=== PATIENT | male | born 1955 | race Caucasian/White ===

== ENCOUNTER 2018-05-24 13:33 | Day surgery (SDC) | payer OTHER ==
[~2018-05-24 13:33] MED LIST: Dexamethasone 20 MG/5 ML VIAL ONE; Ketorolac Tromethamine 30 MG/ML VIAL ONE; Lidocaine 1% PF 5 ML VIAL ONE; Ondansetron HCl/PF 4 MG/2 ML Vial ONE; PROPOFOL 200 MG/20 ML VIAL ONE
[2018-05-24 14:28] LABS: #Basophils 0.1 thou/uL (0.0-0.2); #Eosinphils 0.2 thou/uL (0.0-0.7); #Lymphocytes 2.5 thou/uL (1.20-3.40); #Monocytes 0.7 thou/uL (0.11-0.59); #Neutrophils 5.7 thou/uL (1.40-6.50); %Basophils 0.7 % (0.0-1.0); %Eosinophils 2.6 % (0.0-10.0); %Lymphocytes 27.3 % (21.0-51.0); %Monocytes 7.1 % (0.0-10.0); %Neutrophils 62.3 % (42.0-75.0); Hemoglobin 14.6 g/dL (14.0-18.0); Mean Corpuscular HGB CONC 33.4 g/dL (32.0-36.0); Mean Corpuscular Hemoglobin 30.8 pg (27.0-31.0); Mean Corpuscular Volume 92.3 fL (78.0-98.0); Mean Platelet Volume 7.6 fL (7.4-10.4); Platelet Count 244 thou/uL (130-400); RBC Distribution Width 13.6 % (11.5-14.5); Red Blood Cell (RBC) Count 4.75 mill/uL (4.70-6.10); White Blood Cell (WBC) Count 9.2 thou/uL (4.8-10.8)
[2018-05-24 14:44] LABS: Anion Gap 16 mmol/L (10-20); BUN (Urea Nitrogen) 19 mg/dL (8.4-25.7); Calc. Creatinine Clearance 0 mL/min (70-130); Calcium 10.2 mg/dL (7.8-10.44); Carbon Dioxide 23 mmol/L (23-31); Chloride 103 mmol/L (98-107); Estimated GFR-MDRD 59; Glucose 87 mg/dL (80-115); Potassium 4.1 mmol/L (3.5-5.1); Sodium 138 mmol/L (136-145); Uric Acid 9.6 mg/dL (3.5-7.2)
[2018-05-24] MEDS ORDERED: Clindamycin/D5W 600 mg/50 ml Premix Bag ONE (15:09)
[2018-05-24] MEDS ORDERED: Midazolam HCl 2 mg/2 ml Vial ONE (16:15)
[2018-05-24] MEDS ORDERED: Fentanyl 100 MCG/2 ML VIAL ONE (16:15)
--- NOTE | 2018-05-25 10:05 | OP ---
DATE OF PROCEDURE: 05/24/2018 SURGEON: Arpit Garcia M.D. ANESTHESIA: General LMA technique by Haitian Anesthesia augmented by 10 mL of 0.5% Marcaine block a t the metacarpophalangeal joint level of the left thumb. PROCEDURE PERFORMED: 1. Left thumb interphalangeal joint arthrotomy. 2. Drainage of gouty tophi, intra-articular. 3. Left thumb interphalangeal synovectomy, open. TOURNIQUET TIME: 20 minutes. ESTIMATED BLOOD LOSS: 10 mL FINDINGS: Grossly gouty tophi, sent to the lab for both culture and polarized light study to identif y the crystals. INDICATION: The patient with swelling and joint pain, ports of intermittent drainage of "white milky substance." DESCRIPTION OF PROCEDURE: After successful general LMA technique, the limb was prepped and draped. The patient had a timeout done appropriately. We then injected the thumb at the base of the metacarp ophalangeal joint with 10 mL of 0.5% Marcaine with epinephrine for block. We waited 4 minutes, infla brayan tourniquet and then made a partial hockey stick incision over the joint, carried through skin and immediately white pasty mucoid type hyperuricemic deposit escaped from underneath the extensor tendo n. We then made a window between the extensor tendon and the collaterals on both sides extenso r tendon and then irrigated the joint. We evacuated the paste and tophaceous gout from the joint usi ng a combination of Acadia blade, [place] and then used syringes with 50 mL normal saline with antibiot ics inside and Angiocath of 18 gauge to irrigate the joint properly. After we had run 1 liter of flu id through the joint in this method, we released the tourniquet. We had excellent hemostasis. We th en closed the skin only after deflating the tourniquet and obtained hemostasis using a 4-0 nylon inte rrupted in a simple pattern. The patient had bulky dressings and a splint applied and left the opera ting room without evidence of anesthetic or operative complication.
== END 2018-05-24 19:50 | disposition home or self-care (01) ==
LOC: SDC 13:33
PROVIDERS: ATTEND Orthopaedic Surgery Hand Surgery
PROC: 0RCX0ZZ Extirpation of Matter from Left Finger Phalangeal Joint, Open Approach (ICD-10-PCS; principal; 2018-05-24)
DX: M1A.0421 Idiopathic chronic gout, left hand, with tophus (tophi) (principal); I10 Essential (primary) hypertension; E78.00 Pure hypercholesterolemia, unspecified; Z79.899 Other long term (current) drug therapy
CPT/HCPCS: 36415; 80048; 84550; 85025; 85652; 87070; 87205; 88305; 96372; 96374; J1100; J1885; J2001; J2250; J2405; J2704; J3010; J3490

== ENCOUNTER 2018-06-11 14:07 | Emergency (ER) | payer OTHER ==
--- NOTE | 2018-06-11 14:43 | RAD ---
LEFT THUMB 3 VIEWS: HISTORY: Left thumb swelling status post surgery, postop infection. FINDINGS: There are degenerative changes. No fracture, dislocation, bony destruction, or periosteal reaction i s seen. POS: H
[2018-06-11 15:08] LABS: #Basophils 0.1 thou/uL (0.0-0.2); #Eosinphils 0.2 thou/uL (0.0-0.7); #Lymphocytes 2.4 thou/uL (1.20-3.40); #Monocytes 0.6 thou/uL (0.11-0.59); #Neutrophils 6.2 thou/uL (1.40-6.50); %Basophils 0.8 % (0.0-1.0); %Eosinophils 2.5 % (0.0-10.0); %Lymphocytes 25.4 % (21.0-51.0); %Monocytes 6.4 % (0.0-10.0); %Neutrophils 64.9 % (42.0-75.0); Hemoglobin 15.1 g/dL (14.0-18.0); Mean Corpuscular HGB CONC 34.6 g/dL (32.0-36.0); Mean Corpuscular Hemoglobin 31.6 pg (27.0-31.0); Mean Corpuscular Volume 91.5 fL (78.0-98.0); Mean Platelet Volume 7.5 fL (7.4-10.4); Platelet Count 230 thou/uL (130-400); RBC Distribution Width 13.4 % (11.5-14.5); Red Blood Cell (RBC) Count 4.78 mill/uL (4.70-6.10); White Blood Cell (WBC) Count 9.5 thou/uL (4.8-10.8)
[2018-06-11 15:29] LABS: ALT (SGPT) 20 U/L (8-55); AST (SGOT) 20 U/L (5-34); Albumin 4.2 g/dL (3.4-4.8); Alkaline Phosphatase 69 U/L (40-150); Anion Gap 17 mmol/L (10-20); BUN (Urea Nitrogen) 25 mg/dL (8.4-25.7); Bilirubin, Total 0.6 mg/dL (0.2-1.2); Calc. Creatinine Clearance 0 mL/min (70-130); Calcium 9.7 mg/dL (7.8-10.44); Carbon Dioxide 23 mmol/L (23-31); Chloride 101 mmol/L (98-107); Estimated GFR-MDRD 55; Globulin 3.9 g/dL (2.4-3.5); Glucose 91 mg/dL (80-115); Potassium 3.8 mmol/L (3.5-5.1); Protein, Total 8.1 g/dL (5.8-8.1); Sodium 137 mmol/L (136-145)
[2018-06-11] MEDS ORDERED: Morphine 4 MG/ML VIAL ONE (16:09)
[2018-06-11] MEDS ORDERED: HYDROcodone/Acetaminophen 7.5/325 mg Tablet ONE (19:27)
== END 2018-06-11 19:54 | disposition home or self-care (01) ==
LOC: ERS 14:07
DX: L02.512 Cutaneous abscess of left hand (principal); M10.9 Gout, unspecified; I10 Essential (primary) hypertension; Z79.899 Other long term (current) drug therapy
CPT/HCPCS: 10060; 36416; 80053; 83605; 84550; 85025; 85652; 86140; 87040; 96361; 96365; 96375; J2270; J3370

== ENCOUNTER 2018-06-16 16:20 | Observation (INO) | payer OTHER ==
[~2018-06-16 16:20] MED LIST changes: -Dexamethasone 20 MG/5 ML VIAL ONE; -Ketorolac Tromethamine 30 MG/ML VIAL ONE; -Ondansetron HCl/PF 4 MG/2 ML Vial ONE
[2018-06-16 17:09] LABS: #Basophils 0.1 thou/uL (0.0-0.2); #Eosinphils 0.3 thou/uL (0.0-0.7); #Monocytes 0.7 thou/uL (0.11-0.59); #Neutrophils 6.5 thou/uL (1.40-6.50); %Basophils 0.9 % (0.0-1.0); %Eosinophils 2.4 % (0.0-10.0); %Lymphocytes 28.3 % (21.0-51.0); %Neutrophils 61.4 % (42.0-75.0); Hemoglobin 15.3 g/dL (14.0-18.0); Mean Corpuscular HGB CONC 34.9 g/dL (32.0-36.0); Mean Corpuscular Hemoglobin 31.5 pg (27.0-31.0); Mean Corpuscular Volume 90.4 fL (78.0-98.0); Mean Platelet Volume 7.5 fL (7.4-10.4); Platelet Count 257 thou/uL (130-400); RBC Distribution Width 13.6 % (11.5-14.5); Red Blood Cell (RBC) Count 4.86 mill/uL (4.70-6.10); White Blood Cell (WBC) Count 10.5 thou/uL (4.8-10.8)
[2018-06-16] MEDS ORDERED: Fentanyl 100 MCG/2 ML VIAL ONE ×2 (18:00→20:10)
[2018-06-16] MEDS ORDERED: Thrombin 5000 UNITS/5 ML VIAL ONE (19:00)
[2018-06-16] MEDS ORDERED: Lidocaine 1% (PF) 30 ML VIAL ONE (19:00)
[2018-06-16] MEDS ORDERED: Bacitracin Zinc Ointment 30 gm TUBE ONE (19:00)
[2018-06-16] MEDS ORDERED: Bupivacaine PF 0.5% 30 ML VIAL ONE (19:00)
[2018-06-16] MEDS ORDERED: Sodium Chloride 0.9% 30 ML ONE (19:00)
[2018-06-16] MEDS ORDERED: Ondansetron HCl/PF 4 MG/2 ML Vial IVP PRN (21:14)
[2018-06-16] MEDS ORDERED: Promethazine HCl 25 MG/ML VIAL IM PRN (21:14)
[2018-06-16] MEDS ORDERED: Promethazine HCl 25 MG/ML VIAL SLOW IVP PRN (21:14)
[2018-06-16] MEDS ORDERED: Ketorolac Tromethamine 30 MG/ML VIAL ONE (21:18)
[2018-06-16] MEDS ORDERED: Milk Of Magnesia 30 ML UDCUP PO PRN (21:22)
[2018-06-16] MEDS ORDERED: Fentanyl 100 MCG/2 ML VIAL SLOW IVP PRN (21:22)
[2018-06-16] MEDS ORDERED: Morphine 4 MG/ML VIAL SLOW IVP PRN (21:22)
[2018-06-16] MEDS ORDERED: Acetaminophen 325 MG TAB PO PRN (21:22)
[2018-06-16] MEDS ORDERED: Ondansetron HCl/PF 4 MG/2 ML Vial IV PRN (21:22)
[2018-06-16] MEDS ORDERED: HYDROcodone/Acetaminophen 5/325 mg Tablet PO PRN (21:22)
[2018-06-16] MEDS ORDERED: traMADol HCl 50 MG TAB PO PRN (21:22)
[2018-06-16] MEDS ORDERED: Meperidine HCl/PF 25 MG/ML VIAL IM PRN (21:26)
[2018-06-16] MEDS ORDERED: Communication Order-Pharmacy FS PRN (21:30)
[2018-06-16] MEDS ORDERED: TETANUS AND DIPHTHERIA TOX/PF 0.5 ML DISP.SYRIN IM SCH (21:30)
[2018-06-16 21:57] LABS: #Basophils 0.1 thou/uL (0.0-0.2); #Eosinphils 0.3 thou/uL (0.0-0.7); #Lymphocytes 2.5 thou/uL (1.20-3.40); #Monocytes 0.6 thou/uL (0.11-0.59); #Neutrophils 4.5 thou/uL (1.40-6.50); %Basophils 1.3 % (0.0-1.0); %Eosinophils 3.2 % (0.0-10.0); %Lymphocytes 31.5 % (21.0-51.0); %Monocytes 7.4 % (0.0-10.0); %Neutrophils 56.6 % (42.0-75.0); Hemoglobin 14.2 g/dL (14.0-18.0); Mean Corpuscular HGB CONC 34.8 g/dL (32.0-36.0); Mean Corpuscular Hemoglobin 31.7 pg (27.0-31.0); Mean Corpuscular Volume 91.1 fL (78.0-98.0); Mean Platelet Volume 7.2 fL (7.4-10.4); Platelet Count 221 thou/uL (130-400); RBC Distribution Width 13.5 % (11.5-14.5); Red Blood Cell (RBC) Count 4.47 mill/uL (4.70-6.10); White Blood Cell (WBC) Count 7.9 thou/uL (4.8-10.8)
[2018-06-16] MEDS ORDERED: Ketorolac Tromethamine 30 MG/ML VIAL IM/IV SCH (22:15)
[2018-06-17 05:14] VITALS: BMI 42.0
[2018-06-17] MEDS ORDERED: Aspirin 81 mg Enteric Coated Tablet PO SCH (09:00)
--- NOTE | 2018-06-17 14:40 | OP ---
PREOPERATIVE DIAGNOSIS: Left thumb gout with possible superinfection findings. POSTOPERATIVE DIAGNOSIS: Left thumb gout, still with some tophi, possible purulence superinfection s econdary to gout and now 3 weeks since initial debridement. INDICATION: The patient returns to the clinic after cellulitis, removal of some sutures, allow drain age and still had drainage, but erythema had increased to an area of 5 mm on all sides of the dorsal thumb interphalangeal joint incision. For this reason, operative intervention was indicated because abscess, possible gouty destruction, and the need to restore soft tissue balance. DESCRIPTION OF PROCEDURE: After successful general LMA technique, the limb was prepped and draped. The patient had the previous wound opened, extended 1 cm proximal to distal, making a lazy, hockey st ick type incision and on the dorsal ulnar aspect mucopurulent plus or minus gouty tophi escaped. We then followed this down and performed arthrotomy. Three of the arthrotomy interspaces, both medial _ ____ radial and ulnar between the collaterals and the primary extensor tendon. We placed a 16-gauge Angiocath and irrigated this with a 250 mL normal saline from both sites. There was no peritendinous reactive tissue to debride. Once this was done, with volar and radial, carried this into semi Nick type incision to reach the f lexor tendons to retract the neurovascular bundles away from the for the interphalangeal joint. From here, there was some mucoid-type tissue, which looked like gouty tophi escape and soft t issue. Once debrided enough for this, make a sample to make a difference, we then irrigated this are a with 50 mL normal saline solution. The tourniquet was now deflated, we did perform synovectomy at the left dorsal thumb around the edges of the extensor tendon, then we did on the flexors, we obtaine d hemostasis, closed the wound with interrupted 4-0 nylon, both dorsal and palmar.
[2018-06-17 20:09] VITALS: BP 138/71; TEMP 98.2
== END 2018-06-17 19:34 | disposition home or self-care (01) ==
LOC: SDC 16:20 → SURG A 21:53
PROVIDERS: ADMIT Orthopaedic Surgery Hand Surgery; ATTEND Orthopaedic Surgery Hand Surgery
PROC: 0RBX0ZZ Excision of Left Finger Phalangeal Joint, Open Approach (ICD-10-PCS; principal; 2018-06-16)
DX: M10.9 Gout, unspecified (principal); M00.9 Pyogenic arthritis, unspecified; I10 Essential (primary) hypertension; Z79.899 Other long term (current) drug therapy
CPT/HCPCS: 36415; 84550; 85025; 85652; 87070; 87077; 87186; 87205; 88304; 89060; 96365; 96374; 96375; 96376; A4216; G0378; J1885; J2001; J2270; J2704; J3010; J3370; J3490; J7050; S0020

== ENCOUNTER 2018-06-25 11:54 | Day surgery (SDC) | payer OTHER ==
[2018-06-24 16:30] VITALS: BMI 40.8
[2018-06-25] MEDS ORDERED: Clindamycin/D5W 600 mg/50 ml Premix Bag ONE (13:49)
[2018-06-25] MEDS ORDERED: Fentanyl 100 MCG/2 ML VIAL ONE ×2 (14:10→21:35)
[2018-06-25] MEDS ORDERED: PROPOFOL 200 MG/20 ML VIAL ONE (14:14)
[2018-06-25 14:15] LABS: #Eosinphils 0.2 thou/uL (0.0-0.7); #Lymphocytes 2.8 thou/uL (1.20-3.40); #Monocytes 0.6 thou/uL (0.11-0.59); #Neutrophils 7.6 thou/uL (1.40-6.50); %Basophils 0.4 % (0.0-1.0); %Eosinophils 1.8 % (0.0-10.0); %Lymphocytes 24.5 % (21.0-51.0); %Monocytes 5.6 % (0.0-10.0); %Neutrophils 67.8 % (42.0-75.0); Hemoglobin 14.5 g/dL (14.0-18.0); Mean Corpuscular Hemoglobin 31.8 pg (27.0-31.0); Mean Corpuscular Volume 93.6 fL (78.0-98.0); Mean Platelet Volume 7.7 fL (7.4-10.4); Platelet Count 258 thou/uL (130-400); RBC Distribution Width 13.4 % (11.5-14.5); Red Blood Cell (RBC) Count 4.57 mill/uL (4.70-6.10); White Blood Cell (WBC) Count 11.2 thou/uL (4.8-10.8)
--- NOTE | 2018-06-25 16:21 | EKG ---
Test Reason : PREOP Blood Pressure : / mmHG Vent. Rate : 095 BPM Atrial Rate : 095 BPM P-R Int : 174 ms QRS Dur : 082 ms QT Int : 354 ms P-R-T Axes : 045 014 008 degrees QTc Int : 444 ms Normal sinus rhythm with sinus arrhythmia Normal ECG No previous ECGs available Confirmed by DR. Wil MIKE ([id number]) on 06/25/2018 4:21:01 PM Referred By: AYANA Confirmed By:DR. Wil MIKE
[2018-06-25] MEDS ORDERED: Sodium Chloride 0.9% 100 ML ONE (16:37)
[2018-06-25] MEDS ORDERED: Bupivacaine PF 0.5% 30 ML VIAL ONE (20:05)
[2018-06-25] MEDS ORDERED: Sodium Chloride 0.9% 20 ML ONE (20:05)
[2018-06-25] MEDS ORDERED: Bacitracin Zinc Ointment 30 gm TUBE ONE (20:05)
[2018-06-25] MEDS ORDERED: HYDROmorphone 2 MG/ML VIAL ONE (21:21)
[2018-06-25] MEDS ORDERED: Midazolam HCl 2 mg/2 ml Vial ONE (21:35)
[2018-06-25] MEDS ORDERED: Propofol 500 MG/50 ML VIAL ONE (21:35)
[2018-06-25] MEDS ORDERED: Sodium Chloride 0.9% 10 ML ONE (22:04)
[2018-06-25] MEDS ORDERED: Ketorolac Tromethamine 30 MG/ML VIAL ONE (22:54)
--- NOTE | 2018-06-26 07:49 | OP ---
PREOPERATIVE DIAGNOSIS: Wound open 7 cm, left thumb. FINDINGS: Wound open 7 cm in left thumb, 5 cm opened in the dorsum of the thumb and 2 on the palmar aspect. PROCEDURES PERFORMED: 1. Debridement of wound. A. Excision technique. B. Used tenotomies, Ridge[place] blade, 11-blade, and curette down to not including the fascia throu gh the dermis, epidermis, and fat; and then finally there was no complication or gross infection patrick bailey 2. A 7-cm wound closure, total, left thumb. TOURNIQUET TIME: None. ESTIMATED BLOOD LOSS: Less than 5 mL. INDICATIONS: The patient after having very severe combination of infection as well as gout. N ow, on appropriate gout medications and wound showed no gross infection in the clinic 2 days ago, so the surgery was schedule now, at least 3 weeks since the initial procedure. DESCRIPTION OF PROCEDURE: After successful propofol deep IV sedation in the operating room, the amanda ent had 10 mL metacarpophalangeal joint level block for the thumb. We waited 7 or 8 minutes, then we began to debride. We used instrumentation as listed above and the technique to debride the wound ed ges, elevate the edges proximally, and debride them as needed. There was no actual resistance to thi s procedure and after we had debrided the wound edges, we then alternated one side of wound to the ot her using simple sutures to close the wound. The patient then left the operating room without eviden ce of anesthetic or operative complication.
--- NOTE | 2018-07-07 08:29 | PQF ---
[facility] POST DISCHARGE CLINICAL DOCUMENTATION IMPROVEMENT CLARIFICATION FORM l Todays Date: 06/30/18 l Patients Name TORY GRIFFITHS l l Admit Date 06/25/18 l Disch Date 06/25/18 [place] Name Tay Melton Email: [email or web address] Cell: [phone] Present Clinical Indicators - Signs / Symptoms Results and Location in Medical Record [ ] Documentation of: [ ] [ ] Documentation of: [ ] [ ] Documentation of: [ ] [ ] Documentation of: [ ] [ ] Risks [ ] [ ] [ ] Treatment [ ] Open wound of left thumb Please specify the size of area debrided in Operative Report [ ] [ ] To be completed by Physician: JOSE EDUARDO COREAS The documentation in this patients record requires clarification to ensure coding compliance and accuracy. Check the appropriate box and include in your discharge summary. [ ] _the wound was 3 X1cm [ ] [ ] [ ] Please check this box if this does not apply to this patient [ ] Unable to determine [ ] Other diagnosis: Review the following information and exercise your independent professional judgment in responding to the clarification. Based upon the clinical findings, risk factors, and treatment, please clarify if you are treating one of the above probable or suspected diagnoses. MTDD
== END 2018-06-25 23:35 | disposition home or self-care (01) ==
LOC: SDC 11:54
PROVIDERS: ATTEND Orthopaedic Surgery Hand Surgery
PROC: 0JBK0ZZ Excision of Left Hand Subcutaneous Tissue and Fascia, Open Approach (ICD-10-PCS; principal; 2018-06-25)
DX: S61.002A Unspecified open wound of left thumb without damage to nail, initial encounter (principal); I10 Essential (primary) hypertension; E78.00 Pure hypercholesterolemia, unspecified; M19.042 Primary osteoarthritis, left hand; M1A.0420 Idiopathic chronic gout, left hand, without tophus (tophi); Z79.82 Long term (current) use of aspirin; Z79.899 Other long term (current) drug therapy
CPT/HCPCS: 84550; 85025; 85652; 93005; 93010; 96374; A4216; J1170; J1885; J2250; J2704; J3010; J3490; J7050; S0020

== ENCOUNTER 2018-06-27 14:38 | Emergency (ER) | payer OTHER ==
[2018-06-27] MEDS ORDERED: Bacitracin Zinc 1 Packet ONE (15:43)
== END 2018-06-27 16:05 | disposition home or self-care (01) ==
LOC: ERS 14:38
DX: Z47.89 Encounter for other orthopedic aftercare (principal); M10.9 Gout, unspecified; Z79.899 Other long term (current) drug therapy; Z79.82 Long term (current) use of aspirin
CPT/HCPCS: 99282

== ENCOUNTER 2018-07-30 11:59 | Day surgery (SDC) | payer OTHER ==
[2018-07-29 14:19] VITALS: BMI 41.6
[2018-07-30] MEDS ORDERED: Midazolam HCl 2 mg/2 ml Vial ONE (12:48)
[2018-07-30] MEDS ORDERED: PROPOFOL 20 ML ONE (12:48)
[2018-07-30] MEDS ORDERED: PROPOFOL 200 MG/20 ML VIAL ONE (13:25)
[2018-07-30] MEDS ORDERED: Gadobenate Dimeglumine 529 MG/1 ML (20ML VIAL) ONE (15:10)
--- NOTE | 2018-07-30 16:06 | MRI ---
RIGHT SHOULDER MRI WITH AND WITHOUT IV CONTRAST 07/30/18 HISTORY: 62-year-old male with history of chondroid bone lesion. Complete tear right rotator cuff. Comparison is made to prior plain film examination of the right shoulder 01/23/08. The exam was performed with bone mass protocol. There is abnormal marrow signal including some calcif ic or ossific foci within the humeral neck and extending in to the proximal humeral metaphysis, evide nce for a low grade chondroid matrix tumor such as an enchondroma. This sclerotic bone lesion was pre sent and does not appear to be significantly changed when comparing MR to plain film examination dati ng back to 01/23/08. There is a markedly abnormal widened AC joint with fluid extending directly from the glenohumeral joint into the AC joint, evidence for disruption of the joint capsule. If the patien t has not had prior surgery to account for this, this may be related to chronic longstanding abutment of the humerus at the undersurface of the lateral acromion and AC joint from very severe longstandi ng rotator cuff injuries. There is very markedly severe muscle volume loss of the supraspinatus muscl e, infraspinatus muscle, teres minor muscle, subscapularis muscle and moderate to severe muscle volum e loss of the overlying deltoid muscle. There appear to be longstanding irregular full thickness retr acted tears of the supraspinatus tendon and infraspinatus tendon with some associated delamination. T he teres minor tendon appears intact. Very poor definition of the subscapularis tendon consistent wit h at least partial thickness undersurface and delaminating tears. No normal intact biceps tendon is seen intra-articularly. Arthrosis changes with glenohumeral joint arthropathy changes involving the humeral head which essentially abuts the undersurface of the lateral acromion. The visualized labrum is very poorly defined and blunted, evidence for severe degeneration. IMPRESSION: Very extensive longstanding chronic rotator cuff tears with severe muscle volume loss involving all o f the rotator cuff muscles. Prominent glenohumeral joint arthropathy. Abnormally widened AC joint wit h disruption of the underlying joint capsule, possibly from longstanding abutment of the humeral head unless the patient has had prior surgery to this region. Heterogeneous abnormal signal within the hu meral head and neck with some calcific or ossific foci evidence for nonaggressive chondroid matrix tu mor such as an enchondroma without significant adjacent abnormal marrow edema and prior plain film ex amination from 01/23/08 study demonstrated that this chondroid matrix tumor was present at that time. O ther findings as above. POS: TPC
== END 2018-07-30 15:35 | disposition home or self-care (01) ==
LOC: SDC/OP 11:59
PROVIDERS: ATTEND Orthopaedic Surgery Hand Surgery
DX: M75.121 Complete rotator cuff tear or rupture of right shoulder, not specified as traumatic (principal); M12.811 Other specific arthropathies, not elsewhere classified, right shoulder; C49.9 Malignant neoplasm of connective and soft tissue, unspecified; M94.9 Disorder of cartilage, unspecified; I10 Essential (primary) hypertension; E78.00 Pure hypercholesterolemia, unspecified; M10.9 Gout, unspecified; S61.002A Unspecified open wound of left thumb without damage to nail, initial encounter; B95.8 Unspecified staphylococcus as the cause of diseases classified elsewhere; Z79.1 Long term (current) use of non-steroidal anti-inflammatories (NSAID); Z79.2 Long term (current) use of antibiotics; Z79.51 Long term (current) use of inhaled steroids; Z79.82 Long term (current) use of aspirin; Z79.899 Other long term (current) drug therapy
CPT/HCPCS: 82565; A9579; J2250; J2704

== ENCOUNTER 2018-10-05 13:00 | Inpatient (IN) | payer OTHER ==
[2018-10-06 13:52] VITALS: BMI 42.8
[2018-10-07] MEDS ORDERED: Midazolam HCl 2 mg/2 ml Vial ONE (06:10)
[2018-10-07] MEDS ORDERED: Fentanyl 100 MCG/2 ML VIAL ONE (06:10)
[2018-10-07] MEDS ORDERED: Sodium Chloride 0.9% 100 ML ONE (06:19)
[2018-10-07] MEDS ORDERED: CEFAZOLIN 2 GM/50 ML BAG ONE (06:19)
[2018-10-07] MEDS ORDERED: Tranexamic Acid 1,000 MG/10 ML VIAL ONE ×2 (06:19→10:16)
[2018-10-07] MEDS ORDERED: traMADol HCl 50 MG TAB PO PRN ×3 (06:38→11:28)
[2018-10-07] MEDS ORDERED: Fentanyl 100 MCG/2 ML VIAL SLOW IVP PRN (06:38)
[2018-10-07] MEDS ORDERED: HYDROcodone/Acetaminophen 10/325 mg Tablet PO PRN ×2 (06:38)
[2018-10-07] MEDS ORDERED: Ropivacaine 0.2% 550 ML 550 ML NERVE BLCK SCH (06:38)
[2018-10-07] MEDS ORDERED: Zolpidem Tartrate 5 MG TAB PO PRN (06:38)
[2018-10-07] MEDS ORDERED: Promethazine HCl 25 MG/ML VIAL IM PRN ×2 (06:38→07:57)
[2018-10-07] MEDS ORDERED: Ondansetron PF 4 MG/2 ML Vial IVP PRN (06:38)
[2018-10-07] MEDS ORDERED: Promethazine HCl 25 MG/ML VIAL SLOW IVP PRN (07:57)
[2018-10-07] MEDS ORDERED: Ondansetron HCl/PF 4 MG/2 ML Vial IVP PRN (07:57)
[2018-10-07] MEDS ORDERED: Phenylephrine HCL 10 MG/ML VIAL ONE (08:02)
--- NOTE | 2018-10-07 10:50 | RAD ---
RIGHT SHOULDER TWO VIEWS: History: Right shoulder replacement. FINDINGS/IMPRESSION: There are post op changes of total right shoulder arthroplasty in good position and alignment. Surgic al clips and soft tissue air is present. POS: FARZADH
[2018-10-07] MEDS ORDERED: CEFAZOLIN/Water 2 GM/20 ML SYRINGE SLOW IVP SCH (11:28)
[2018-10-07] MEDS ORDERED: diphenhydrAMINE 50 MG CAP PO PRN (11:28)
[2018-10-07] MEDS ORDERED: Methocarbamol 500 MG TAB PO PRN (11:28)
[2018-10-07] MEDS ORDERED: Milk Of Magnesia 30 ML UDCUP PO PRN (11:28)
[2018-10-07] MEDS ORDERED: Bisacodyl 10 MG SUPP PR PRN (11:28)
[2018-10-07] MEDS ORDERED: Methocarbamol 1 GM/10 ML VIAL SLOW IVP PRN (11:28)
[2018-10-07] MEDS ORDERED: Acetaminophen 325 MG TAB PO PRN (11:28)
[2018-10-07] MEDS: Dextrose 5 %-0.45 % NaCl 1,000 ML IV SCH (14:05)
[2018-10-07] MEDS: Ketorolac Tromethamine 30 MG/ML VIAL IVP SCH ×2 (14:27→17:36)
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
[2018-10-07] MEDS ORDERED: Ropivacaine 0.5% HCl/PF (150 MG/30 ML VIAL) ONE (15:14)
[2018-10-07] MEDS ORDERED: Ropivacaine 0.2% HCl/PF (40 MG/20 ML VIAL) ONE (15:14)
[2018-10-07] MEDS: CEFAZOLIN 2 GM/50 ML-DEXTROSE 2 GM in Premix Bag 1 BAG IVPB SCH (15:17)
[2018-10-07] MEDS: Famotidine 20 MG TAB PO SCH (20:30)
[2018-10-07] MEDS ORDERED: Ondansetron PF 4 MG/2 ML Vial ONE (22:33)
[2018-10-07] MEDS ORDERED: PROPOFOL 200 MG/20 ML VIAL ONE (22:33)
[2018-10-07] MEDS ORDERED: Succinylcholine Chloride 20 MG/ML 10 ml SYRINGE FS ONE (22:33)
[2018-10-07] MEDS ORDERED: Dexamethasone 20 MG/5 ML VIAL ONE (22:33)
[2018-10-07] MEDS ORDERED: ePHEDrine/0.9% NaCl/PF SYRINGE 50 mg/10 ml ONE (22:33)
[2018-10-07] MEDS ORDERED: Glycopyrrolate 0.2 MG/ML 5 ML SYRINGE ONE (22:33)
[2018-10-07] MEDS ORDERED: PHENYLEPHRINE-NS 100 MCG/ML 10 ML SYRINGE ONE (22:33)
[2018-10-07] MEDS ORDERED: Lidocaine 1% PF 5 ML VIAL ONE (22:33)
[2018-10-08] MEDS: Ketorolac Tromethamine 30 MG/ML VIAL IVP SCH ×3 (00:38→12:05)
[2018-10-08] MEDS: CEFAZOLIN 2 GM/50 ML-DEXTROSE 2 GM in Premix Bag 1 BAG IVPB SCH (00:38)
[2018-10-08] MEDS: Dextrose 5 %-0.45 % NaCl 1,000 ML IV SCH ×2 (04:05→05:47)
[2018-10-08] MEDS: Famotidine 20 MG TAB PO SCH (07:55)
[2018-10-08 08:06] LABS: Hemoglobin 13.7 g/dL (14.0-18.0); Mean Corpuscular Hemoglobin 30.8 pg (27.0-31.0); Mean Corpuscular Volume 93.5 fL (78.0-98.0); Mean Platelet Volume 7.7 fL (7.4-10.4); Platelet Count 213 thou/uL (130-400); RBC Distribution Width 13.8 % (11.5-14.5); Red Blood Cell (RBC) Count 4.43 mill/uL (4.70-6.10)
[2018-10-08 12:42] VITALS: BP 154/87; TEMP 98
--- NOTE | 2018-10-09 04:41 | DIS ---
DATE OF ADMISSION: 10/07/2018 DATE OF DISCHARGE: 10/08/2018 PREOPERATIVE DIAGNOSES: 1. Right rotator cuff arthropathy. 2. Chondroid matrix tumor, likely enchondroma. POSTOPERATIVE DIAGNOSIS: 1. Right rotator cuff arthropathy. 2. Chondroid matrix tumor, likely enchondroma. PROCEDURE PERFORMED: The patient underwent a right reverse shoulder arthroplasty. HOSPITAL COURSE: Hospital stay grossly unremarkable. He worked with physical therapy and occupational therapy and progressed very well. We saw the patient today and he had good stability, movements, strength in his deltoid and had no deficits or sensation in his hand. He had no postop complications. DISCHARGE CONDITION: Good/stable. DISPOSITION: Home with family. FOLLOWUP: Follow up would be in 10 to 14 days or sooner if there are any problems or concerns. DISCHARGE MEDICATIONS: Given with the usage instructions. Job ID: [id number]
--- NOTE | 2018-10-11 10:02 | PQF ---
TORY GRIFFITHS JUSTIN MD [id number] SURG B- [id number] CLINICAL DOCUMENTATION CLARIFICATION FORM: POST DISCHARGE DATE: 10/11/2018 ATTN: Dr. Croft Please exercise your independent, professional judgment in responding to the clarification form. Clinical indicators are provided on the bottom of this form for your review Please check appropriate box(s): BMI > 40 with associated diagnosis of: (check one) [ ] Morbid (Severe) Obesity [ ] Due to excess calories [ ] Overweight [ ] Obesity [ ] Other diagnosis (please specify) [ ] Unable to determine In addition, please specify: Present on Admission (POA): [ ] Yes [ ] No [ ] Unable to Determine For continuity of documentation, please document condition throughout progress notes and discharge summary. Thank You. BMI < 19 Under weight 19 - 24.9 Healthy 25.0 - 29.9 Slightly Overweight 30.0 - 34.9 Obese 35.0 - 39.9 Severely Obese 40.0 and Over Morbidly Obese CLINICAL INDICATORS - SIGNS / SYMPTOMS / LABS BMI of:42.8. RISK FACTORS (per H&P) Hypertension. High cholesterol. Smoker. TREATMENTS: N/A. (This form is maintained as a part of the permanent medical record) 2014 [employer] All Rights Reserved Leilani [email or web address] [phone] [email or web address]
== END 2018-10-08 14:15 | disposition home or self-care (01) | DRG 483 ==
LOC: SURG A 10-07 05:42 → SURG B 10-07 13:24
PROVIDERS: ADMIT Orthopaedic Surgery; ATTEND Orthopaedic Surgery
PROC: 0RRJ00Z Replacement of Right Shoulder Joint with Reverse Ball and Socket Synthetic Substitute, Open Approach (ICD-10-PCS; principal; 2018-10-07)
DX: M12.811 Other specific arthropathies, not elsewhere classified, right shoulder (principal); D16.01 Benign neoplasm of scapula and long bones of right upper limb; I10 Essential (primary) hypertension; E78.00 Pure hypercholesterolemia, unspecified; Z79.899 Other long term (current) drug therapy
CPT/HCPCS: 36415; 85027; 88307; 88311; 94660; A4306; G8978-GP-CJ; G8979-GP-CJ; G8980-GP-CJ; G8987-GO-CJ; G8988-GO-CJ; G8989-GO-CJ; J1100; J1885; J2001; J2250; J2370; J2405; J2704; J2795; J3010; J3370; J7050

== ENCOUNTER 2018-10-06 13:38 | Outpatient (CLI) | payer OTHER ==
[2018-10-06 16:01] LABS: Bilirubin Negative (Negative); Blood, Urine Negative (Negative); Clarity CLEAR (Clear); Glucose, Urine (Dipstick) Negative (Negative); Leukocyte Negative (Negative); Nitrite Negative (Negative); Protein, Urine (Dipstick) Negative (Neg-Trace); Specific Gravity, Urine 1.019 (1.002-1.036); Urobilinogen 0.2 mg/dL (0.2-1.0); pH, Urine 7.5 (5.0-9.0)
[2018-10-06 16:02] LABS: Hemoglobin 15.6 g/dL (14.0-18.0); Mean Corpuscular HGB CONC 32.8 g/dL (32.0-36.0); Mean Corpuscular Hemoglobin 30.8 pg (27.0-31.0); Mean Platelet Volume 8.3 fL (7.4-10.4); Platelet Count 252 thou/uL (130-400); RBC Distribution Width 13.8 % (11.5-14.5); Red Blood Cell (RBC) Count 5.07 mill/uL (4.70-6.10); White Blood Cell (WBC) Count 9.2 thou/uL (4.8-10.8)
[2018-10-06 16:03] LABS: Bacteria/HPF None Seen HPF (None Seen); Hyaline Casts/LPF 0-3 HYALINE CAST LPF (0-3 Hyaline); RBC/HPF 0-3 HPF (0-3); Squamous Epithelial None Seen HPF (0-3); WBC/HPF None Seen HPF (0-3)
[2018-10-06 16:21] LABS: Anion Gap 14 mmol/L (10-20); BUN (Urea Nitrogen) 25 mg/dL (8.4-25.7); Calc. Creatinine Clearance 0 mL/min (70-130); Carbon Dioxide 27 mmol/L (23-31); Chloride 100 mmol/L (98-107); Estimated GFR-MDRD 59; Glucose 111 mg/dL (80-115); Potassium 3.6 mmol/L (3.5-5.1); Sodium 137 mmol/L (136-145)
[2018-10-06 16:44] LABS: Calcium 9.9 mg/dL (7.8-10.44)
--- NOTE | 2018-10-08 07:26 | EKG ---
Test Reason : Blood Pressure : / mmHG Vent. Rate : 099 BPM Atrial Rate : 099 BPM P-R Int : 166 ms QRS Dur : 082 ms QT Int : 336 ms P-R-T Axes : 054 028 022 degrees QTc Int : 431 ms Normal sinus rhythm Nonspecific T wave abnormality Abnormal ECG When compared with ECG of 25-JUN-2018 13:53, No significant change was found Confirmed by MARIETTA VIZCAINO ([id number]) on 10/08/2018 7:26:09 AM Referred By: VILLA Confirmed By:MARIETTA VIZCAINO
== END 2018-10-06 13:39 | disposition home or self-care (01) ==
LOC: LABBT 13:38
PROVIDERS: ATTEND Orthopaedic Surgery
DX: Z01.818 Encounter for other preprocedural examination (principal); M19.011 Primary osteoarthritis, right shoulder
CPT/HCPCS: 80048; 81001; 85027; 93005; 93010

== ENCOUNTER 2018-10-09 13:53 | Emergency (ER) | payer OTHER ==
[2018-10-09] MEDS ORDERED: Ondansetron ODT 4 MG TAB ONE (15:53)
[2018-10-09] MEDS ORDERED: Morphine 4 MG/ML VIAL ONE (15:53)
[2018-10-09] MEDS ORDERED: Ketorolac Tromethamine 30 MG/ML VIAL ONE (15:53)
== END 2018-10-09 16:30 | disposition home or self-care (01) ==
LOC: ERS 13:53
DX: G89.18 Other acute postprocedural pain (principal)
CPT/HCPCS: 96372; J1885; J2270; Q0162

== ENCOUNTER 2020-07-15 19:30 | Outpatient (CLI) | payer OTHER | END 2020-07-15 19:31 | disposition home or self-care (01) | LOC: SLEEPLAB 19:30 | PROVIDERS: ATTEND Family Medicine | DX: G47.33 Obstructive sleep apnea (adult) (pediatric) (principal); G47.00 Insomnia, unspecified; R53.83 Other fatigue; R09.02 Hypoxemia | CPT/HCPCS: 95811 ==

== ENCOUNTER 2020-11-21 15:24 | Outpatient (CLI) | payer OTHER | END 2020-11-21 15:25 | disposition home or self-care (01) | LOC: CTENTCT 15:24 | PROVIDERS: ATTEND Specialist | DX: J32.9 Chronic sinusitis, unspecified (principal) | CPT/HCPCS: 70486 ==

== ENCOUNTER 2020-11-23 16:12 | Outpatient (CLI) | payer OTHER ==
[2020-11-22 16:09] LABS: #Eosinphils 0.3 10x3/uL (0.0-0.5); #Monocytes 0.6 10x3/uL (0.0-1.1); #Neutrophils 5.2 10x3/uL (1.5-8.4); %Basophils 0.4 % (0.0-2.0); %Eosinophils 4.3 % (0.0-6.0); %Lymphocytes 19.2 % (18.0-47.0); %Monocytes 7.9 % (0.0-10.0); %Neutrophils 67.8 % (40.0-75.0); Hemoglobin 14.2 g/dL (14.0-18.0); Mean Corpuscular HGB CONC 31.1 G/DL (32.0-36.0); Mean Corpuscular Hemoglobin 28.1 PG (27.0-33.0); Mean Corpuscular Volume 90.1 fl (80.0-100.0); Mean Platelet Volume 10.6 fl (7.4-10.4); Platelet Count 215 10x3/uL (130-400); RBC Distribution Width 17.8 % (11.5-14.5); Red Blood Cell (RBC) Count 5.06 10x6/uL (4.40-5.80); White Blood Cell (WBC) Count 7.7 10x3/uL (4.5-11.0)
[2020-11-22 16:18] LABS: Bilirubin Neg (Negative); Blood, Urine 10 (Negative); Clarity Clear (Clear); Glucose, Urine (Dipstick) Normal (Negative); Ketone, Urine Negative (Negative); Leukocyte Negative (Negative); Nitrite Negative (Negative); Protein, Urine (Dipstick) 30 mg/dl (Neg-Trace); Urobilinogen Normal mg/dL (Less than 2)
[2020-11-22 16:33] LABS: Squamous Epithelial 0-3 HPF (0-3); WBC/HPF 0-3 HPF (0-3)
[2020-11-23 09:37] LABS: SARS-CoV-2 PCR by NAA Indeterminate (NotDetected)
[2020-11-24 04:55] LABS: SARS-CoV-2 PCR by NAA Not Detected (NotDetected)
== END 2020-11-23 16:13 | disposition home or self-care (01) ==
LOC: LABBT 16:12
PROVIDERS: ATTEND Orthopaedic Surgery Hand Surgery
DX: Z01.818 Encounter for other preprocedural examination (principal); Z20.822 Contact with and (suspected) exposure to COVID-19
CPT/HCPCS: 81001; 85025; 87635; 93005; 93010; U0003; U0005

== ENCOUNTER 2020-11-27 06:14 | Day surgery (SDC) | payer OTHER ==
[2020-11-23 11:39] VITALS: BMI 44.3
[2020-11-27] MEDS ORDERED: Fentanyl 100 MCG/2 ML VIAL ONE (08:10)
[2020-11-27] MEDS ORDERED: Midazolam HCl 2 mg/2 ml Vial ONE ×2 (08:10→10:58)
[2020-11-27] MEDS ORDERED: Bacitracin Zinc Ointment 30 gm TUBE ONE (08:39)
[2020-11-27] MEDS ORDERED: Bupivacaine PF 0.5% 30 ML VIAL ONE (08:39)
[2020-11-27] MEDS ORDERED: Sodium Chloride 0.9% 10 ML ONE (08:39)
[2020-11-27] MEDS ORDERED: Succinylcholine 200 MG/10 ml SYRINGE FS ONE (10:50)
[2020-11-27] MEDS ORDERED: Ondansetron PF 4 MG/2 ML Vial ONE (10:50)
[2020-11-27] MEDS ORDERED: Rocuronium Bromide 10 MG/ML (10ML VIAL) ONE (10:50)
[2020-11-27] MEDS ORDERED: Bupivacaine HCl 0.5%/Epinephrine 1:200,000/PF 30 ml Vial ONE (10:50)
[2020-11-27] MEDS ORDERED: PROPOFOL 200 MG/20 ML VIAL ONE (10:50)
[2020-11-27] MEDS ORDERED: SUGAMMADEX SODIUM 200 MG/2 ML VIAL ONE (10:56)
--- NOTE | 2020-11-27 11:13 | RAD ---
XR Finger(s) Rt Min 2 View History: Arthrodesis right hand Comparison: Hand radiograph November 08, 2020 Findings: Arthrodesis of the thumb interphalangeal joint with cerclage wire and percutaneous pins. Impression: Fluoroscopy for surgical purposes.
[2020-11-27] MEDS ORDERED: Albuterol Sulfate 2.5 mg/3 ml Neb ONE ×2 (12:16→12:18)
[2020-11-27] MEDS ORDERED: Albuterol Sulfate 1.25 MG/3 ML NEB ONE (12:18)
[2020-11-27] MEDS ORDERED: Albuterol Sulfate 2.5 mg/3 ml Neb NEB SCH (16:00)
--- NOTE | 2020-11-28 07:35 | OP ---
DATE OF PROCEDURE: 11/27/2020 PREOPERATIVE DIAGNOSIS: Gout with severe joint erosion and subluxation of the interphalangeal joint of the left thumb. POSTOPERATIVE DIAGNOSIS: Gout with severe joint erosion and subluxation of the interphalangeal joint of the left thumb with marked degenerative changes, but starting to form early inebriated bone. PROCEDURE PERFORMED: 1. C-arm supervision. 2. Arthrotomy with joint debridement to include gouty tophi. 3. Arthrodesis of left thumb interphalangeal joint using 24-gauge cerclage wire as well as 2 x 1.25 Synthes guidewire. SPECIMEN REMOVED: Joint tophi. ESTIMATED BLOOD LOSS: 20 mL. TOURNIQUET TIME: 69 minutes. FINDINGS: Complete osteoarthritis with tophi parallel. INDICATIONS: Patient with failed procedures to preserve a subluxed joint that was many days old after immobilization was fixed and removed and the patient had mobility issues. The specimen removed was called as joint tophi. DESCRIPTION OF PROCEDURE: After successful general endotracheal anesthesia, limb prepped and draped. We reiterated and used some of his transverse incision which went from radial to lateral. Once agreement was made on how to maximize this, then we prepped and draped limb, underwent a time-out, exsanguinated the limb, inflated the tourniquet to 250 mmHg pressure and because he had a block already, no further were given. It was at this point that we discovered with making a dorsal incision and peeling the extensor mechanism leaving a 5 mm long piece that distal to the joint, then we saw the joint destruction. There was complete osteoarthritis with tophi which we resected. There was also loss of contour of the joint surface, but we completed a very generous excision of osteophytes, removal of tophi, irrigation, matching the cup and cone type format. Once the patient had reached to the point, where we used burrs, combination of Hocking blade, combination with curette, we were able to achieve our goals in terms of possible height and we had no problems of restoring length but we had to work to make it centralized and soften some of the bone more on the digit tip side at the metacarpal head. The collateral ligament was released, we then shotgun the joint in maximum palmar flexion until we could clean out the posterior 2 mm area and there was no abnormality. We also found some gouty tophi in the joint as well as in the subcutaneous tissue. We removed them and sent them as specimens. Now, we had performed enough bone resection now, had move all inebriated bone, matched the size, we then reduced the construct and held it there until we prepare for next phase. The joint debridement now was done, tophi removed, we turned to the actual arthrodesis. It was here we created a cup and cone impaction in the head of the metacarpal and base of it and because this was subcortical bone, then we were able to matched the surfaces up. Before we could pre-match it, we used an 18-gauge needle as a guidewire, drilled through the bone, passed parallel to the joint line and had no problems. We then did the same over the distal phalanx until we now had control of the construct. It was at this point that we advanced final K-wires and under C-arm, they were in good position after one K-wire had previously been problematic. Then, we visualized that there was impaction and made sure that the distal part maybe impacted while we finished the procedure and this included radiographs, cutting the wires, flushing to the skin using a small cutter and never discussing this again. At this point, the tourniquet was deflated, hemostasis obtained. We closed the extensor mechanism with interrupted [id number] Prolene sutures and then closed the patient's skin with 4-0 nylon in an interrupted simple pattern. Job ID: [id number]
== END 2020-11-27 16:04 | disposition home or self-care (01) ==
LOC: SDC 06:14
PROVIDERS: ATTEND Orthopaedic Surgery Hand Surgery
PROC: 3E0T3BZ Introduction of Anesthetic Agent into Peripheral Nerves and Plexi, Percutaneous Approach (ICD-10-PCS; principal; 2020-11-27)
PROC: 0RGX04Z Fusion of Left Finger Phalangeal Joint with Internal Fixation Device, Open Approach (ICD-10-PCS; principal; 2020-11-27)
DX: M1A.0421 Idiopathic chronic gout, left hand, with tophus (tophi) (principal); S63.122A Subluxation of interphalangeal joint of left thumb, initial encounter; M18.12 Unilateral primary osteoarthritis of first carpometacarpal joint, left hand; G89.18 Other acute postprocedural pain; I10 Essential (primary) hypertension; E78.00 Pure hypercholesterolemia, unspecified; E11.9 Type 2 diabetes mellitus without complications; Z79.1 Long term (current) use of non-steroidal anti-inflammatories (NSAID); Z79.84 Long term (current) use of oral hypoglycemic drugs; Z79.899 Other long term (current) drug therapy
CPT/HCPCS: 76000; 94660; J0690; J2250; J2405; J2704; J3010; J3490; J7611; S0020

== ENCOUNTER 2021-05-24 06:06 | Day surgery (SDC) | payer MEDICARE ==
[2021-05-22 14:34] VITALS: BMI 42.0
[2021-05-24] MEDS ORDERED: Neomycin-Polymyxin 1 ML AMP ONE (06:30)
[2021-05-24] MEDS ORDERED: Bacitracin Zinc Ointment 30 gm TUBE ONE (06:30)
[2021-05-24] MEDS ORDERED: Bupivacaine PF 0.5% 30 ML VIAL ONE (06:30)
[2021-05-24] MEDS ORDERED: Fentanyl 100 MCG/2 ML VIAL ONE ×2 (06:54→07:05)
[2021-05-24] MEDS ORDERED: Midazolam HCl 2 mg/2 ml Vial ONE ×2 (06:54→07:05)
[2021-05-24 07:18] LABS: #Basophils 0.1 thou/uL (0.0-0.2); #Eosinphils 0.5 thou/uL (0.0-0.7); #Lymphocytes 1.4 thou/uL (1.20-3.40); #Monocytes 0.8 thou/uL (0.11-0.59); #Neutrophils 5.7 thou/uL (1.40-6.50); %Basophils 0.7 % (0.0-1.0); %Eosinophils 6.1 % (0.0-10.0); %Lymphocytes 16.8 % (21.0-51.0); %Monocytes 9.8 % (0.0-10.0); %Neutrophils 66.7 % (42.0-75.0); Hemoglobin 16.1 g/dL (14.0-18.0); Mean Corpuscular HGB CONC 32.6 g/dL (32.0-36.0); Mean Corpuscular Hemoglobin 28.6 pg (27.0-31.0); Mean Corpuscular Volume 87.8 fL (78.0-98.0); Mean Platelet Volume 8.5 fL (7.4-10.4); Platelet Count 197 thou/uL (130-400); RBC Distribution Width 16.2 % (11.5-14.5); Red Blood Cell (RBC) Count 5.64 mill/uL (4.70-6.10); White Blood Cell (WBC) Count 8.5 thou/uL (4.8-10.8)
[2021-05-24] MEDS ORDERED: Lidocaine 1% PF 5 ML VIAL ONE (07:41)
[2021-05-24] MEDS ORDERED: Rocuronium Bromide 10 MG/ML (10ML VIAL) ONE (07:41)
[2021-05-24] MEDS ORDERED: PHENYLEPHRINE-NS 100 MCG/ML 10 ML SYRINGE ONE ×2 (07:41→08:43)
[2021-05-24] MEDS ORDERED: Glycopyrrolate 0.2 MG/ML 5 ML SYRINGE ONE (07:41)
[2021-05-24] MEDS ORDERED: Bupivacaine HCl 0.5%/Epinephrine 1:200,000/PF 30 ml Vial ONE (07:41)
[2021-05-24] MEDS ORDERED: PROPOFOL 200 MG/20 ML VIAL ONE (07:41)
[2021-05-24] MEDS ORDERED: Ondansetron PF 4 MG/2 ML Vial ONE (07:41)
[2021-05-24] MEDS ORDERED: SUGAMMADEX SODIUM 200 MG/2 ML VIAL ONE (10:30)
[2021-05-24] MEDS ORDERED: Ketorolac Tromethamine 30 MG/ML VIAL ONE (11:02)
== END 2021-05-24 16:08 | disposition home or self-care (01) ==
LOC: SDC 06:06
PROVIDERS: ATTEND Orthopaedic Surgery Hand Surgery
PROC: 0RGX07Z Fusion of Left Finger Phalangeal Joint with Autologous Tissue Substitute, Open Approach (ICD-10-PCS; principal; 2021-05-24)
DX: S63.125 Dislocation of interphalangeal joint of left thumb (principal); I10 Essential (primary) hypertension; E11.9 Type 2 diabetes mellitus without complications; E78.00 Pure hypercholesterolemia, unspecified; Z79.84 Long term (current) use of oral hypoglycemic drugs; Z79.899 Other long term (current) drug therapy
CPT/HCPCS: 26862; 73140; 76000; 85025; C1713 ×2; J0690; J1885; J2250; J2405; J2704; J3010; S0020